=== PATIENT | male | born 1955 | race Caucasian/White ===

== ENCOUNTER 2020-04-07 06:08 | Emergency (ER) | payer SELFPAY ==
[~2020-04-07] VITALS: Wt 97.5 kg
[2020-04-07 06:44] LABS: BASO # 0.1 10*3/uL (0.0-0.1); EOS # 0.1 10*3/uL (0.0-0.4); EOS % 1.4 % (1.0-4.0); HEMATOCRIT 49.1 % (42.0-52.0); LYMPH # 2.2 10*3/uL (1.3-4.4); LYMPH % 27.6 % (27.0-41.0); MEAN CELL VOLUME 96.8 fl (80.0-94.0); MEAN CORPUSCULAR HGB 32.9 pg (27.0-31.0); MEAN PLATELET VOLUME 10.9 fl (9.6-12.3); MONO # 0.7 10*3/uL (0.1-1.0); MONO % 8.8 % (3.0-9.0); NEUT # 4.9 10*3/uL (2.3-7.9); NEUT % 60.5 % (47.0-73.0); PLATELET COUNT AUTOMATED 237 10*3/uL (130-400); RED BLOOD COUNT 5.07 10*6/uL (4.50-5.90); RED CELL DISTRI WIDTH 14.1 % (0-14.5); WHITE BLOOD COUNT 8.1 10*3/uL (4.8-10.8)
== END 2020-04-07 06:57 | disposition short-term general hospital (02) ==
LOC: ED 06:08
PROVIDERS: Emergency Medicine
DX: I21.01 ST elevation (STEMI) myocardial infarction involving left main coronary artery (principal); Z91.040 Latex allergy status

== ENCOUNTER → 2022-02-13 | Outpatient (CLI) | payer OTHER ==
[~2022-02-13] MED LIST: ASPIRIN ADULT L81 M1 PO; COLACE100 MG PO; LEVOFLOXACIN500 MG PO; METRONIDAZOLE500 M1 PO; MULTIVITAMIN1 EACH PO
[2022-02-13 10:30] LABS: CREATININE 0.96 mg/dL (0.70-1.30)
== END | disposition home or self-care (01) ==
LOC: LAB 09:50 → CT 10:00
PROVIDERS: Student in an Organized Health Care Education/Training Program; ATTEND Surgery
DX: Z01.818 Encounter for other preprocedural examination (principal); I71.4 Abdominal aortic aneurysm, without rupture; N40.0 Benign prostatic hyperplasia without lower urinary tract symptoms; K35.31 Acute appendicitis with localized peritonitis and gangrene, without perforation; K80.20 Calculus of gallbladder without cholecystitis without obstruction; N32.89 Other specified disorders of bladder